=== PATIENT | female | born 1985 | race Caucasian/White ===

== ENCOUNTER 2018-06-24 17:38 | Emergency (ER) | payer BC ==
[~2018-06-24] VITALS: Ht 162.6 cm; Wt 61.6 kg
[~2018-06-24 17:38] MED LIST: AMIT25TA9 PO; BUTA1CAP39 PO; DICY10CA40 PO; NITR-58 PO; ONDA4TAB35 PO
[2018-06-24 18:03] VITALS: Ht 162.6 cm; Wt 61.6 kg
[2018-06-24] MEDS ORDERED: SOD CHLORIDE 0.9% 500 ML IV STA (18:37)
[2018-06-24] MEDS ORDERED: FAMOTIDINE 20 MG INJ IV STA (18:37)
[2018-06-24] MEDS ORDERED: morphine 4 MG/ML VIAL IV STA (18:37)
[2018-06-24] MEDS ORDERED: ONDANSETRON 4 MG INJ IV STA (18:37)
[2018-06-24] MEDS ORDERED: FAMO-96 PO (19:50)
--- NOTE | 2018-06-24 19:58 | ERD ---
ER Documentation Chief Complaint Chief Complaint RUQ PAIN X 5 DAYS; SENT BY PCP; DENIES NVD, FEVER HPI This is a 32-year-old female with a nonsignificant past medical history presents ED with complaints of right upper quadrant abdominal pain times 5 days. Patient states that the pain comes and goes and is becoming more of a constant pain over the past few days. Patient rates pain at a 5 out of 10. States the pain is not aggravated by food. Denies fever, chills, nausea, vomiting, diarrhea, cuts patient, melena, hematochezia, hemoptysis, hematemesis, dysuria, hematuria, vaginal pain, vaginal discharge. No known drug allergies. ROS All systems reviewed and are negative except as per history of present illness. Medications Home Meds Active Scripts Famotidine* (Pepcid*) 20 Mg Tablet, 20 MG PO BID for 4 Days, TAB Prov:ABRIL BECK PA-C 06/24/18 Nitrofurantoin Monohyd Macrocr* (Macrobid*) 100 Mg Capsr, 100 MG PO BID for 7 Days, CAP Prov:RUBEN HERNANDEZ NP 05/03/15 Fllzpuojseyrk-Cyocwxmnbw-Bwzdtqjt-Codeine* (Fioricet w/ Codeine*) [id number] Capsule, 1 CAP PO Q6H PRN for PAIN LEVEL 1-5, #20 CAP Prov:RUBEN HERNANDEZ NP 05/03/15 Ondansetron Hcl* (Zofran* ODT) 4 mg -ODT Tab.disper, 4 MG PO Q8 PRN for NAUSEA AND/OR VOMITING, #30 TAB Prov:RUBEN HERNANDEZ NP 05/03/15 Dicyclomine HCl (Dicyclomine HCl) 10 Mg Capsule, 10 MG PO QID, #20 CAP Prov:RUBEN HERNANDEZ NP 05/03/15 Amitriptyline Hcl* (Amitriptyline Hcl*) 25 Mg Tablet, 25 MG PO HS, #60 TAB Prov:OBED SHERMAN DO 02/19/15 Allergies Allergies: Coded Allergies: Penicillins (Verified Allergy, Unknown, 02/18/15) ciprofloxacin (Verified Allergy, Unknown, 02/18/15) PMhx/Soc History of Surgery: No Hx Miscellaneous Medical Probl: Yes (migraine ARDON) Hx Alcohol Use: Yes (occasionally) Hx Substance Use: No Hx Tobacco Use: No FmHx Family History: No diabetes Physical Exam Vitals Vital Signs Date Temp Pulse Resp B/P (MAP) Pulse Ox O2 O2 Flow FiO2 Time Delivery Rate 06/24/18 98.7 121 15 123/81 100 18:03 (95) Physical Exam Physical Exam Vitals signs: Reviewed by me. General: Well developed, well nourished, in no acute distress. Patient is awake and alert. Head: Normocephalic, atraumatic. Eyes: Normal conjunctiva, Pupils PERRLA, EOM intact grossly ENT: Pharynx is clear, Moist mucous membranes, external ears, nose and mouth normal Neck: Supple, no masses, lymphadenopathy or JVD Respiratory: Clear to auscultation bilaterally with no wheezing, rhonchi, rales, no distress Cardiovascular: RRR, no murmurs, rubs, or gallops Abdominal: Soft, nondistended, no peritoneal signs, no rigidity, no surgical abdomen, mild tenderness palpation epigastric and right upper quadrant region, McBurney's point nontender, no rebound tenderness Back: No midline tenderness. No flank tenderness Neurologic: Alert and oriented, moving all extremities, normal speech, no focal weakness, no cerebellar signs. Normal mentation Skin: warm and dry, No rash Psych: Normal mood Result Diagram: 06/24/18184906/24/181849 Results 24 hrs Laboratory Tests Test 06/24/18 18:50 06/24/18 18:55 White Blood Count 10.1 10^3/ul Red Blood Count 4.21 10^6/ul Hemoglobin 13.2 g/dl Hematocrit 40.0 % Mean Corpuscular Volume 95.0 fl Mean Corpuscular Hemoglobin 31.4 pg Mean Corpuscular Hemoglobin Concent 33.0 g/dl Red Cell Distribution Width 12.1 % Platelet Count 284 10^3/UL Mean Platelet Volume 9.8 fl Immature Granulocytes % 0.300 % Neutrophils % 74.9 % Lymphocytes % 18.2 % Monocytes % 5.9 % Eosinophils % 0.4 % Basophils % 0.3 % Nucleated Red Blood Cells % 0.0 /100WBC Immature Granulocytes # 0.030 10^3/ul Neutrophils # 7.6 10^3/ul Lymphocytes # 1.8 10^3/ul Monocytes # 0.6 10^3/ul Eosinophils # 0.0 10^3/ul Basophils # 0.0 10^3/ul Nucleated Red Blood Cells # 0.0 10^3/ul Urine Color YELLOW Urine Clarity SLIGHTLY CLOUDY Urine pH 5.0 Urine Specific [place] 1.005 Urine Ketones NEGATIVE mg/dL Urine Nitrite NEGATIVE mg/dL Urine Bilirubin NEGATIVE mg/dL Urine Urobilinogen NEGATIVE mg/dL Urine Leukocyte Esterase 1+ Mikayla/ul Urine Microscopic RBC 2 /HPF Urine Microscopic WBC 3 /HPF Urine Squamous Epithelial Cells FEW /HPF Urine Bacteria FEW /HPF Urine Hemoglobin 1+ mg/dL Urine Glucose NEGATIVE mg/dL Urine Total Protein NEGATIVE mg/dl Sodium Level 140 mmol/L Potassium Level 4.0 mmol/L Chloride Level 104 mmol/L Carbon Dioxide Level 28 mmol/L Anion Gap 8 Blood Urea Nitrogen 9 mg/dl Creatinine 0.69 mg/dl Est Glomerular Filtrat Rate mL/min > 60 mL/min Glucose Level 102 mg/dl Calcium Level 9.1 mg/dl Total Bilirubin 0.3 mg/dl Direct Bilirubin 0.00 mg/dl Indirect Bilirubin 0.3 mg/dl Aspartate Amino Transf (AST/SGOT) 21 IU/L Alanine Aminotransferase (ALT/SGPT) 13 IU/L Alkaline Phosphatase 70 IU/L Total Protein 7.6 g/dl Albumin 4.6 g/dl Globulin 3.00 g/dl Albumin/Globulin Ratio 1.53 Lipase 184 U/L POC Beta HCG, Qualitative NEGATIVE Current Medications Medications Dose Sig/Adrian Start Time Status Last (Trade) Ordered Route PRN Stop Time Admin Dose Reason Admin Sodium 500 ml @ Q1H STAT 06/24/18 DC 06/24/18 Chloride 500 mls/hr IV 18:37 18:57 06/24/18 19:36 Morphine 4 mg ONCE STAT 06/24/18 DC 06/24/18 Sulfate IV 18:37 18:56 (morphine) 06/24/18 18:41 Ondansetron 4 mg ONCE STAT 06/24/18 DC 06/24/18 HCl (Zofran IV 18:37 18:56 Inj) 06/24/18 18:41 Famotidine 20 mg ONCE STAT 06/24/18 DC 06/24/18 (Pepcid Iv) IV 18:37 18:56 06/24/18 18:41 Procedures/MDM EKG, MONITORS, & DIAGNOSTIC IMAGING: [place] [id number] Radiology Main Line: [phone] DIAGNOSTIC IMAGING REPORT Patient: HEIKE AGUDELO : 1985 Age: 32 Sex: F MR #: [id number] DOS: 06/24/18 1837 Ordering MD: ABRIL BECK PA-C Location: [facility] Room/Bed: PROCEDURE: US Abdomen. CLINICAL INDICATION: Abdominal Pain TECHNIQUE: Multiple real-time images were acquired of the patient's abdomen and retroperitoneum utilizing a high resolution transducer. COMPARISON: None FINDINGS: Visualized portions of the pancreatic head and proximal body are unremarkable. The liver is normal in size and contour without evidence of intrapelvic biliary dilatation. The liver is normal in echotexture. Flow in the main portal vein is directed towards the liver. The gallbladder is normal without evidence of cholelithiasis, pericholecystic fluid or gallbladder wall thickening. The technologist reports a negative sonographic Tenorio's sign. The common bile duct measures 3.3 mm in maximal dimension. No free fluid is identified. The right kidney is unremarkable without evidence of hydronephrosis or mass. The right kidney measures 8.7 cm in length. IMPRESSION: Unremarkable right upper quadrant ultrasound. RPTAT:AAJJ Physician Darrel Date Time Electronically viewed and signed by Physician Darrel on 06/24/2018 19:13 MC/ CC: ABRIL BECK PA-C [id number] LAB INTERPRETATION: CBC shows no evidence of hemorrhage or infection Chemistry shows no evidence of significant electrolyte abnormalities or renal insufficiency Liver function test shows no evidence of acute biliary or hepatic dysfunction Lipase shows no evidence of acute pancreatitis Urinalysis remarkable for few bacteria, 1+ leukocyte esterase, 3 microscopic WB Cs, 2 microscopic RBCs. ER COURSE: The patient was given normal saline, morphine, Zofran and Pepcid The medication was well tolerated and the patient reports improvement in symptoms. The patient was stable throughout ED course. I kept the patient and/or family informed of laboratory and diagnostic imaging results throughout the emergency room course. The patient was promptly evaluated and a treatment plan was devised based on H&P and other data. This plan was discussed with the patient who agreed and had no further questions or concerns prior to discharge. MEDICAL DECISION MAKING: Non- woman presenting with abdominal pain. test is negative. Considered causes of female-specific abdominal pain including pelvic inflammatory disease, tubo-ovarian abscess, Aipy-Bkfe-Fpiugu, and ovarian torsion. Also considered causes of abdominal pain that are not gender-specific (e.g., appendicitis, volvulus, small bowel obstruction, mesenteric adenitis, acute cholecystitis/choledocholithiasis and other biliary pathology, etc.). Patient well-appearing with normal vital signs. No peritoneal signs and abdomen benign on multiple repeat examinations. Pt well hydrated. Laboratory testing and imaging here reviewed and normal. Patient given strict return precautions for worsening pain, inability to eat/drink, fevers (temperature over 100.4F), or other concerns. Prior to discharge all questions answered. She agrees with treatment plan and understands strict return precautions. Follow-up for repeat abdominal exam within 12 hours. DISPOSITION PLAN: We discussed follow up with the patient's primary care doctor within 24 to 48 hours. Patient counseled regarding my diagnostic impression and care plan. Prior to discharge all questions answered. Pt agrees with treatment plan and understands strict return precautions. Precautionary instructions provided including instructions to return to the ER if not improving or for any worsening or changing symptoms or concerns. SPECIALIST FOLLOW UP RECOMMENDED: gi Patient has been advised to follow up with primary care in 1-2 days. Disclaimer: Inadvertent spelling and grammatical errors are likely due to EHR/dictation software use and do not reflect on the overall quality of patient care. Also, please note that the electronic time recorded on this note does not necessarily reflect the actual time of the patient encounter. Departure Diagnosis: Primary Impression: Abdominal pain Abdominal location: right upper quadrant Qualified Codes: R10.11 - Right upper quadrant pain Condition: Stable Patient Instructions: Abdominal Pain, Epigastric Pain (Uncertain Cause) Referrals: ZURDO SHELBY MD, RAHUL K. CHITAYAT, RON GORDON, RICHARD K MD [facility] YOU HAVE RECEIVED A MEDICAL SCREENING EXAM AND THE RESULTS INDICATE THAT YOU DO NOT HAVE A CONDITION THAT REQUIRES URGENT TREATMENT IN THE EMERGENCY DEPARTMENT. FURTHER EVALUATION AND TREATMENT OF YOUR CONDITION CAN WAIT UNTIL YOU ARE SEEN IN YOUR DOCTORS OFFICE WITHIN THE NEXT 1-2 DAYS. IT IS YOUR RESPONSIBILITY TO MAKE AN APPOINTMENT FOR FOLOW-UP CARE. IF YOU HAVE A PRIMARY DOCTOR --you should call your primary doctor and schedule an appointment IF YOU DO NOT HAVE A PRIMARY DOCTOR YOU CAN CALL OUR PHYSICIAN REFERRAL HOTLINE AT IF YOU CAN NOT AFFORD TO SEE A PHYSICIAN YOU CAN CHOSE FROM THE FOLLOWING [facility] CLINICS [facility] [address] [facility]. [facility] [address] [facility] [facility] [address] [facility] [facility] [address] [facility] [address] [facility]. [facility] [address] Additional Instructions: Patient advised to return to the ED immediately for new or worsening symptoms. Patient advised to follow up with primary care provider in the next 24-48 hours. Patient verbalized understanding and agrees with treatment plan and course of action. If patient has no primary care they may follow up with one of the [facility] clinics listed on the following page or one of the options listed below [facility] + [facility] [address] [place] [id number] or [facility] [address] [place] [address] or [facility] [address] [place] [address] ABRIL BECK PA-C Jun 24, 2018 19:58
[2018-06-24 20:15] VITALS: BP 110/68; PULSE 99; RESP 20
== END 2018-06-24 20:20 | disposition home or self-care (01) ==
LOC: FTE 17:38
DX: R10.11 Right upper quadrant pain (principal)
CPT/HCPCS: 36415; 76705; 80053; 81001; 81025; 83690; 85025; 87086; 96374; 96375; 99285; J2270; J2405; J7040